=== PATIENT | female | born 1965 | race Caucasian/White ===

== ENCOUNTER 2020-08-14 11:17 | Day surgery (SDC) | payer OTHER, SELFPAY ==
[~2020-08-14] VITALS: Ht 154.9 cm; Wt 70.3 kg
[2020-08-14] MEDS ORDERED: diphenhydrAMINE 50 MG/ML VIAL ONE (12:55)
[2020-08-14] MEDS ORDERED: MIDAZOLAM 5 MG/5 ML VIAL ONE (12:56)
[2020-08-14] MEDS ORDERED: fentaNYL citrate 0.05 MG/ML VIAL ONE (12:56)
[2020-08-14] MEDS ORDERED: LIDOCAINE 2% 100 MG/5 ML UJET TP ONE (12:57)
[2020-08-14] MEDS ORDERED: fentaNYL citrate 0.05 MG/ML VIAL IVP ONE (13:25)
[2020-08-14] MEDS ORDERED: MIDAZOLAM 2 MG/2 ML VIAL IVP ONE (13:25)
== END 2020-08-14 15:34 | disposition home or self-care (01) ==
LOC: MDS 11:17 → MMU 11:18 → MDS 15:34
PROVIDERS: ATTEND Internal Medicine Gastroenterology
DX: Z12.11 Encounter for screening for malignant neoplasm of colon (principal); D12.2 Benign neoplasm of ascending colon; D12.5 Benign neoplasm of sigmoid colon; K57.30 Diverticulosis of large intestine without perforation or abscess without bleeding; B96.81 Helicobacter pylori [H. pylori] as the cause of diseases classified elsewhere; Z79.82 Long term (current) use of aspirin; Z79.899 Other long term (current) drug therapy
CPT/HCPCS: 45381; 45385; 87426; 88305; J2250; J3010; J1200